=== PATIENT | female | born 1945 | race Caucasian/White ===

== ENCOUNTER 2017-03-20 17:51 | Emergency (ER) | payer MEDICARE ==
[~2017-03-20] VITALS: Ht 154.9 cm; Wt 73.0 kg
[~2017-03-20 17:51] MED LIST: GLIP10TA13 PO; GLUCTAB PO; LOVA1TAB47 PO; MELO15TA2 PO; METH750T2 PO
[2017-03-20 17:53] VITALS: BP 165/77; PULSE 100; RESP 16; TEMP 98.2; O2SAT 96
--- NOTE | 2017-03-20 18:27 | PD ---
HPI Chief Complaint: Nosebleed Time Seen by Provider: 18:18 Travel History International Travel<30 days: No Contact w/Intl Traveler<30days: No Traveled to known affect area: No History of Present Illness HPI Patient presents with complaints of epistaxis. Reports 4 nosebleeds over the last 7 days. States that she is able to stop it from bleeding approximately 15- 20 minutes. Denies any significant allergy history. She is not on any blood thinners. Denies any trauma. PFSH Past Medical History High Cholesterol: Yes Diabetes: Yes Diminished Hearing: No Past Surgical History Cholecystectomy: Yes Hysterectomy: Yes Social History Alcohol Use: Yes (occ) Tobacco Use: Yes (occ) Substance Use: No Allergies-Medications (Allergen,Severity, Reaction): Coded Allergies: codeine (Unverified Allergy, Severe, UNKNOWN, 03/20/17) rocio (Unverified Allergy, Severe, RESP COMPROMISE, 03/20/17) Reported Meds & Prescriptions Reported Meds & Active Scripts Active Robaxin (Methocarbamol) 750 Mg Tab 750 Mg PO QID Mobic (Meloxicam) 15 Mg Tab 1 Tab PO DAILY NEEDED FOR PAIN Reported Lovastatin 20 Mg Tab 20 Mg PO DAILY Glipizide Er (Glipizide) 10 Mg Tab 20 Mg PO DAILY Metformin Hcl (Metformin HCl) 500 Mg Tab 1,000 Mg PO BID Review of Systems General / Constitutional: No: Fever Eyes: No: Visual changes HENT: Positive: Nosebleed, No: Headaches Cardiovascular: No: Chest Pain or Discomfort Respiratory: No: Shortness of Breath Gastrointestinal: No: Abdominal Pain Genitourinary: No: Dysuria Musculoskeletal: No: Pain Skin: No Rash Neurologic: No: Weakness Psychiatric: No: Depression Endocrine: No: Polydipsia Hematologic/Lymphatic: No: Easy Bruising Physical Exam Narrative GENERAL: Well-nourished, well-developed patient. SKIN: Focused skin assessment warm/dry. HEAD: Normocephalic. Nares erythematous without any specific lesion noted or active bleeding EYES: No scleral icterus. No injection or drainage. NECK: Supple, trachea midline. No JVD or lymphadenopathy. CARDIOVASCULAR: Regular rate and rhythm without murmurs, gallops, or rubs. RESPIRATORY: Breath sounds equal bilaterally. No accessory muscle use. GASTROINTESTINAL: Abdomen soft, non-tender, nondistended. MUSCULOSKELETAL: No cyanosis, or edema. BACK: Nontender without obvious deformity. No CVA tenderness. Data Data Last Documented VS Vital Signs Date Time Temp Pulse Resp B/P (MAP) Pulse Ox O2 Delivery O2 Flow Rate FiO2 03/20/17 17:53 98.2 100 16 165/77 (106) 96 MDM Medical Decision Making Medical Screen Exam Complete: Yes Emergency Medical Condition: Yes Differential Diagnosis Epistaxis, allergies, exposed capillary Narrative Course Assessment and plan discussed with patient at bedside. Diagnosis Primary Impression: Epistaxis, recurrent Patient Instructions: General Instructions Additional Instructions: Encouraged a saline nasal spray, encouraged [id number] antihistamine without pseudoephedrine. Encouraged to follow-up with PCP/ENT. Encouraged to discuss elevated blood pressure with her PCP. Encouraged to return to emergency room with any onset of new symptoms. Med/Other Pt SpecificInfo: No Meds Exist/No RX given Disposition: 01 DISCHARGE HOME Condition: Good Harsh Cunningham MD Mar 20, 2017 18:27
[2017-03-20] MEDS ORDERED: GLIP1TAB51 PO (18:31)
[2017-03-20] MEDS ORDERED: METF-382 PO (18:31)
[2017-03-20] MEDS ORDERED: LATA0.002 EACH EYE (18:31)
== END 2017-03-20 18:45 | disposition home or self-care (01) ==
LOC: PHED 17:51
DX: R04.0 Epistaxis (principal); E78.00 Pure hypercholesterolemia, unspecified; E11.9 Type 2 diabetes mellitus without complications; Z72.0 Tobacco use; Z88.5 Allergy status to narcotic agent; Z79.899 Other long term (current) drug therapy
CPT/HCPCS: 99282